=== PATIENT | female | born 1955 | race Caucasian/White ===

== ENCOUNTER 2018-01-06 10:57 | Outpatient (CLI) ==
--- NOTE | 2018-01-06 11:59 | DI ---
EXAM: CHEST FRONTAL AND LATERAL VIEWS HISTORY: Bronchitis. COMPARISON: 08/07/2016 FINDINGS: Heart size and mediastinal contour remain within normal limits. Lungs are hyperinflated. There is diffuse, chronic appearing interstitial accentuation. There are scattered calcifications s uggesting old granulomatous disease. No acute infiltrates are seen. No vascular congestion. There is no consolidation, visible pleural fluid or pneumothorax. Bones reveal no acute fracture. Mild sc oliosis. IMPRESSION: Cannot exclude a component chronic obstructive pulmonary disease, correlate clinically. No acute infiltrates.
== END 2018-01-06 10:58 | disposition home or self-care (01) ==
LOC: RAD 10:57
PROVIDERS: ATTEND Nurse Practitioner Family
DX: J40 Bronchitis, not specified as acute or chronic (principal); F17.200 Nicotine dependence, unspecified, uncomplicated